=== PATIENT | male | born 1970 | race Caucasian/White ===

== ENCOUNTER 2017-04-13 12:22 | Inpatient (IN) | payer OTHER ==
[2017-04-13] MEDS ORDERED: ONDANSETRON 4 MG/2 ML VIAL IVP ONE (12:48)
--- NOTE | 2017-04-13 13:10 | EDPHY ---
H & P Stated Complaint: generalized abd pain, worse when eating starting yest Time Seen by Provider: 04/13/17 13:09 - Medical/Surgical History Hx Asthma: No Hx Chronic Respiratory Disease: No Hx Diabetes: No Hx Cardiac Disease: No Hx Renal Disease: No Hx Cirrhosis: No Hx Alcoholism: No Hx HIV/AIDS: No Hx Splenectomy or Spleen Trauma: No Other PMH: NONE - Social History Smoking Status: Never smoked Constitutional: Initial Vital Signs Temperature (C) 36.5 C 04/13/17 12:26 Heart Rate 87 04/13/17 12:26 Respiratory Rate 16 04/13/17 12:26 Blood Pressure 123/84 H 04/13/17 12:26 O2 Sat (%) 98 04/13/17 12:26 O2 Delivery Mode Room Air Allergies/Adverse Reactions: No Known Allergies Allergy (Unverified 04/06/15 21:15) Home Medications: Medication Instructions Recorded Allergy Relief 04/06/15 Medical Decision Making - Diagnostics Imaging Results: Imaging Impressions Abdomen CT 04/13/17 13:38 Impression: 1. Peripancreatic stranding of the mesenteric fat which may represent pancreatitis of indeterminate age. 2. No CT evidence of appendicitis, abscess, or bowel obstruction. 3. Cyst near the apex of the prostate. Consider PSA correlation. Findings and recommendations discussed with Emergency Department physician, Tim Butterfield MD, at 1437 hours, 04/13/2017. Final report concurs with initial preliminary interpretation. Abdomen Ultrasound 04/13/17 14:39 Impression: 1. No definite cholelithiasis. Gallbladder sludge as well as a gallbladder polyp are identified. 2. Suspect hepatic steatosis. Results called and discussed with Tim Butterfield MD on 04/13/2017 at 16:08 Imaging: Discussed imaging studies w/ call out clerk Radiologist, I viewed and interpreted images myself ED Course/Re-evaluation: CHIEF COMPLAINT: Abdominal pain HISTORY OF PRESENT ILLNESS: The patient is a 46 y/o male complaining of diffuse abdominal pain onset yesterday while eating. He first noticed pain on the right side of his abdomen, it then moved to the left side and is now diffuse. The pain intermittently radiates abruptly up his esophagus under his sternum and feels "like reflux." His abdominal pain continues to be worse on the right side and now radiates to his flank. He denies associated shortness of breath. No abdominal surgery history. History obtained via head of music. REVIEW OF SYSTEMS: A 10 point review of systems was performed and is negative with the exception of the elements mentioned in the history of present illness. PHYSICAL EXAM: HR, BP, O2 Sat, RR. Temp noted General Appearance: Alert, obese, well-hydrated, appropriate, and uncomfortable -appearing. Head: Atraumatic without scalp tenderness or obvious injury Eyes: Pupils equal, round, reactive to light and accommodation, EOMI, no trauma , no injection. Nose: Atraumatic, no rhinorrhea, clear. Throat: Mucus membranes moist. Neck: Supple, nontender, no lymphadenopathy. Respiratory: No retractions, no distress, no wheezes, and no accessory muscle use. Lungs are clear to auscultation bilaterally. Cardiovascular: Regular rate and rhythm, no murmurs, rubs, or gallops. Good capillary refill all extremities. Gastrointestinal: Abdomen is soft, diffuse moderate tenderness, non-distended, no masses, no rebound, no guarding, no peritoneal signs. Musculoskeletal: Normal active ROM of all extremities, atraumatic. Neurological: Alert, appropriate, and interactive. Nonfocal neuro exam. Skin: No rashes, good turgor, no nodules on palpation. Past medical history: Denies Past surgical history: Denies Family history: Noncontributory Social history: Salvadorean-speaking, alcohol use DIAGNOSTICS/PROCEDURES/CRITICAL CARE TIME: Abdominal CT: unremarkable. Abdominal US: unremarkable. DIFFERENTIAL DIAGNOSIS: The differential diagnosis for the patient's abdominal pain included but was not limited to alcoholic gastritis, appendicitis , cholecystitis, hernias, testicular torsion, and urinary tract infection. MEDICAL DECISION MAKING: This is an obese, Salvadorean-speaking 46 y/o male with no stated medical history who presents with 1 day of diffuse abdominal pain that radiates into his chest and feels like reflux. He has a soft abdomen with diffuse moderate tenderness on exam. Plan for labs, imaging, and symptom management. IV established. Labs drawn including CBC, CHEM. Plan for abdominal CT. Symptom management with 4mg IV Zofran, 1mg IV Dilaudid, 1L IV NS. 1610: Imaging and labs unremarkable. Reassessed patient. He continues to have diffuse abdominal tenderness. I believe this is likely alcoholic gastritis, but will request surgical consult as well. 1640: Consulted with Dr. Barney, surgeon. He will evaluate patient here. Dr. Barney does not see any surgical process and recommends admission to the hospitalist for ongoing pain. 40mg IV Protonix administered. Dr. Frias accepts admission. - Data Points Laboratory Results: Laboratory Results 04/13/17 12:35 04/13/17 12:35 04/13/17 04/13/17 12:35 12:35 WBC 10.51 10^3/uL H 10^3/uL (3.80-9.50) RBC 5.59 10^6/uL 10^6/uL (4.40-6.38) Hgb 17.0 g/dL g/dL (13.7-17.5) Hct 49.7 % % (40.0-51.0) MCV 88.9 fL fL (81.5-99.8) MCH 30.4 pg pg (27.9-34.1) MCHC 34.2 g/dL g/dL (32.4-36.7) RDW 12.9 % % (11.5-15.2) Plt Count 245 10^3/uL 10^3/uL (150-400) MPV 9.9 fL fL (8.7-11.7) Neut % (Auto) 78.2 % H % (39.3-74.2) Lymph % (Auto) 12.4 % L % (15.0-45.0) [place] % (Auto) 6.1 % % (4.5-13.0) Eos % (Auto) 2.1 % % (0.6-7.6) Baso % (Auto) 0.7 % % (0.3-1.7) Nucleat RBC Rel Count 0.0 % % (0.0-0.2) Absolute Neuts (auto) 8.23 10^3/uL H 10^3/uL (1.70-6.50) Absolute Lymphs (auto) 1.30 10^3/uL 10^3/uL (1.00-3.00) Absolute Monos (auto) 0.64 10^3/uL 10^3/uL (0.30-0.80) Absolute Eos (auto) 0.22 10^3/uL 10^3/uL (0.03-0.40) Absolute Basos (auto) 0.07 10^3/uL 10^3/uL (0.02-0.10) Absolute Nucleated RBC 0.00 10^3/uL 10^3/uL (0-0.01) Immature Gran % 0.5 % % (0.0-1.1) Immature Gran # 0.05 10^3/uL 10^3/uL (0.00-0.10) Sodium 138 mEq/L mEq/L (134-144) Potassium 4.1 mEq/L mEq/L (3.5-5.2) Chloride 106 mEq/L mEq/L (97-110) Carbon Dioxide 18 mEq/l L mEq/l (22-31) Anion Gap 14 mEq/L mEq/L (8-16) BUN 12 mg/dL mg/dL (7-23) Creatinine 0.9 mg/dL mg/dL (0.7-1.3) Estimated GFR > 60 Glucose 112 mg/dL H mg/dL (70-100) Calcium 9.9 mg/dL mg/dL (8.5-10.4) Total Bilirubin 1.6 mg/dL H mg/dL (0.1-1.4) Conjugated Bilirubin 0.5 mg/dL mg/dL (0.0-0.5) Unconjugated Bilirubin 1.1 mg/dL mg/dL (0.0-1.1) AST 44 IU/L IU/L (17-59) ALT 113 IU/L H IU/L (21-72) Alkaline Phosphatase 71 IU/L IU/L (38-126) Total Protein 7.6 g/dL g/dL (6.3-8.2) Albumin 4.7 g/dL g/dL (3.5-5.0) Lipase 108.0 IU/L IU/L (23-300) Medications Given: Discontinued Medications Hydromorphone HCl (Dilaudid) 1 mg IVP EDNOW ONE Stop: 04/13/17 13:38 Last Admin: 04/13/17 13:41 Dose: 1 mg Hydromorphone HCl (Dilaudid) 1 mg IVP EDNOW ONE Stop: 04/13/17 15:55 Last Admin: 04/13/17 16:14 Dose: 1 mg Sodium Chloride (Ns) 1,000 mls @ 0 mls/hr IV ONCE ONE; Wide Open PRN Reason: Protocol Stop: 04/13/17 13:38 Last Admin: 04/13/17 13:41 Dose: 1,000 mls Sodium Chloride (Ns) 1,000 mls @ 0 mls/hr IV ONCE ONE; Wide Open PRN Reason: Protocol Stop: 04/13/17 13:38 Last Admin: 04/13/17 13:42 Dose: 1,000 mls Ondansetron HCl (Zofran) 4 mg IVP EDNOW ONE Stop: 04/13/17 12:49 Last Admin: 04/13/17 12:52 Dose: 4 mg Departure - Departure Disposition: [facility] Inpatient Acute Clinical Impression: Gastritis Abdominal pain Qualifiers: Abdominal location: generalized Qualified Code(s): R10.84 - Generalized abdominal pain Condition: Fair Referrals: [facility] [Other] - As per Instructions Print Language: Salvadorean Report Scribed for: Tim Butterfield Report Scribed by: Mariia Ybarra Date of Report: 04/13/17 Time of Report: 13:18
[2017-04-13] MEDS ORDERED: NS 1,000 ML IV ONE ×2 (13:37)
[2017-04-13] MEDS ORDERED: HYDROmorphONE/DILAUDID 1 MG/ML SYR IVP ONE ×2 (13:37→15:54)
[2017-04-13 13:42] LABS: % IMMATURE GRANULYOCYTES 0.5 % (0.0-1.1); ABSOLUTE IMMATURE GRANULOCYTES 0.05 10^3/uL (0.00-0.10); ADD DIFF? NO; ADD MORPH? NO; ADD SCAN? NO; ATYPICAL LYMPHOCYTE FLAG 0 (0-99); FRAGMENT RBC FLAG 0 (0-99); HEMATOCRIT 49.7 % (40.0-51.0); LEFT SHIFT FLG 20 (0-99); LIPEMIA HEMOLYSIS FLAG 90 (0-99); MEAN CELL HEMOGLOBIN 30.4 pg (27.9-34.1); MEAN CELL HEMOGLOBIN CONCENTR. 34.2 g/dL (32.4-36.7); MEAN CELL VOLUME 88.9 fL (81.5-99.8); MEAN PLATELET VOLUME 9.9 fL (8.7-11.7); PLATELET CLUMPS FLAG 10 (0-99); PLATELET COUNT 245 10^3/uL (150-400); RED BLOOD CELL COUNT 5.59 10^6/uL (4.40-6.38); RED CELL DISTRIBUTION WIDTH 12.9 % (11.5-15.2)
[2017-04-13 13:48] LABS: ALANINE AMINOTRANSFERASE 113 IU/L (21-72); ALBUMIN 4.7 g/dL (3.5-5.0); ALKALINE PHOSPHATASE 71 IU/L (38-126); ANION GAP 14 mEq/L (8-16); ASPARTATE AMINOTRANSFERASE 44 IU/L (17-59); BILIRUBIN,TOTAL 1.6 mg/dL (0.1-1.4); BILIRUBIN-CONJUGATED 0.5 mg/dL (0.0-0.5); BILIRUBIN-UNCONJUGATED 1.1 mg/dL (0.0-1.1); CALCIUM 9.9 mg/dL (8.5-10.4); CARBON DIOXIDE 18 mEq/l (22-31); CHLORIDE 106 mEq/L (97-110); CREATININE 0.9 mg/dL (0.7-1.3); GLOMERULAR FILTRATION RATE > 60; GLUCOSE 112 mg/dL (70-100); POTASSIUM 4.1 mEq/L (3.5-5.2); SODIUM 138 mEq/L (134-144); TOTAL PROTEIN 7.6 g/dL (6.3-8.2)
[2017-04-13] MEDS ORDERED: IOPAMIDOL (ISOVUE-300) 100 ML BTL ONE (14:03)
[2017-04-13] MEDS ORDERED: PANTOPRAZOLE SODIUM 40 MG in NS 100 ML IV ONE (17:04)
--- NOTE | 2017-04-13 17:21 | PDCONSULT ---
[employer] Note: This is a 46-year-old gentleman presents for 24 hours of diffuse abdominal pain associated with nausea. Patient denies any other symptoms including fevers or chills, diarrhea, malaise, dysuria or other constitutional symptoms. The pain rates about a 5/10 with palpation and he has mild generalized peritoneal signs. He has had no previous surgery on his abdomen. He recently was diagnosed with prostatitis and placed on medication by [facility] in [place] however he does not recall the specific name of medication he has been taking. Past medical/past surgical/family and social history reviewed all noncontributory except what was mentioned above Review of systems significant for his abdominal pain all others reviewed and are negative No known drug allergies Generic Name Dose Route Start Last Admin Trade Name Freq PRN Reason Stop Dose Admin Pantoprazole Sodium 40 mg/ 100 mls @ 200 mls/hr 04/13/17 17:04 04/13/17 17:12 Sodium Chloride IV 04/13/17 17:33 100 mls EDNOW ONE Administration Discontinued Medications Generic Name Dose Route Start Last Admin Trade Name Freq PRN Reason Stop Dose Admin Hydromorphone HCl 1 mg 04/13/17 13:37 04/13/17 13:41 Dilaudid IVP 04/13/17 13:38 1 mg EDNOW ONE Administration Hydromorphone HCl 1 mg 04/13/17 15:54 04/13/17 16:14 Dilaudid IVP 04/13/17 15:55 1 mg EDNOW ONE Administration Sodium Chloride 1,000 mls @ 0 mls/hr 04/13/17 13:37 04/13/17 13:41 Ns IV 04/13/17 13:38 1,000 mls ONCE ONE Administration Protocol Wide Open Sodium Chloride 1,000 mls @ 0 mls/hr 04/13/17 13:37 04/13/17 13:42 Ns IV 04/13/17 13:38 1,000 mls ONCE ONE Administration Protocol Wide Open Iopamidol Confirm 04/13/17 14:03 Isovue-300 Administered 04/13/17 14:04 Dose 100 ml .ROUTE .STK-MED ONE Ondansetron HCl 4 mg 04/13/17 12:48 04/13/17 12:52 Zofran IVP 04/13/17 12:49 4 mg EDNOW ONE Administration Alert oriented no distress Sclerae are anicteric Oropharynx is moist Regular rate and rhythm Clear to auscultation bilaterally Soft diffusely tender, no hepatosplenomegaly, no hernias, nondistended Extremities without edema 2+ over 2+ peripheral pulses WBC 10.51 10^3/uL (3.80-9.50) H 04/13/17 12:35 RBC 5.59 10^6/uL (4.40-6.38) 04/13/17 12:35 Hgb 17.0 g/dL (13.7-17.5) 04/13/17 12:35 Hct 49.7 % (40.0-51.0) 04/13/17 12:35 MCV 88.9 fL (81.5-99.8) 04/13/17 12:35 MCH 30.4 pg (27.9-34.1) 04/13/17 12:35 MCHC 34.2 g/dL (32.4-36.7) 04/13/17 12:35 RDW 12.9 % (11.5-15.2) 04/13/17 12:35 Plt Count 245 10^3/uL (150-400) 04/13/17 12:35 MPV 9.9 fL (8.7-11.7) 04/13/17 12:35 Neut % (Auto) 78.2 % (39.3-74.2) H 04/13/17 12:35 Lymph % (Auto) 12.4 % (15.0-45.0) L 04/13/17 12:35 [place] % (Auto) 6.1 % (4.5-13.0) 04/13/17 12:35 Eos % (Auto) 2.1 % (0.6-7.6) 04/13/17 12:35 Baso % (Auto) 0.7 % (0.3-1.7) 04/13/17 12:35 Nucleat RBC Rel Count 0.0 % (0.0-0.2) 04/13/17 12:35 Absolute Neuts (auto) 8.23 10^3/uL (1.70-6.50) H 04/13/17 12:35 Absolute Lymphs (auto) 1.30 10^3/uL (1.00-3.00) 04/13/17 12:35 Absolute Monos (auto) 0.64 10^3/uL (0.30-0.80) 04/13/17 12:35 Absolute Eos (auto) 0.22 10^3/uL (0.03-0.40) 04/13/17 12:35 Absolute Basos (auto) 0.07 10^3/uL (0.02-0.10) 04/13/17 12:35 Absolute Nucleated RBC 0.00 10^3/uL (0-0.01) 04/13/17 12:35 Immature Gran % 0.5 % (0.0-1.1) 04/13/17 12:35 Immature Gran # 0.05 10^3/uL (0.00-0.10) 04/13/17 12:35 Sodium 138 mEq/L (134-144) 04/13/17 12:35 Potassium 4.1 mEq/L (3.5-5.2) 04/13/17 12:35 Chloride 106 mEq/L (97-110) 04/13/17 12:35 Carbon Dioxide 18 mEq/l (22-31) L 04/13/17 12:35 Anion Gap 14 mEq/L (8-16) 04/13/17 12:35 BUN 12 mg/dL (7-23) 04/13/17 12:35 Creatinine 0.9 mg/dL (0.7-1.3) 04/13/17 12:35 Estimated GFR > 60 04/13/17 12:35 Glucose 112 mg/dL (70-100) H 04/13/17 12:35 Calcium 9.9 mg/dL (8.5-10.4) 04/13/17 12:35 Total Bilirubin 1.6 mg/dL (0.1-1.4) H 04/13/17 12:35 Conjugated Bilirubin 0.5 mg/dL (0.0-0.5) 04/13/17 12:35 Unconjugated Bilirubin 1.1 mg/dL (0.0-1.1) 04/13/17 12:35 AST 44 IU/L (17-59) 04/13/17 12:35 ALT 113 IU/L (21-72) H 04/13/17 12:35 Alkaline Phosphatase 71 IU/L (38-126) 04/13/17 12:35 Total Protein 7.6 g/dL (6.3-8.2) 04/13/17 12:35 Albumin 4.7 g/dL (3.5-5.0) 04/13/17 12:35 Lipase 108.0 IU/L (23-300) 04/13/17 12:35 CT scan and ultrasound personally reviewed mild peripancreatic inflammation is noted on CT scan otherwise all is normal agree with findings below Imaging Impressions Abdomen CT 04/13/17 13:38 Impression: 1. Peripancreatic stranding of the mesenteric fat which may represent pancreatitis of indeterminate age. 2. No CT evidence of appendicitis, abscess, or bowel obstruction. 3. Cyst near the apex of the prostate. Consider PSA correlation. Findings and recommendations discussed with Emergency Department physician, Tim Butterfield MD, at 1437 hours, 04/13/2017. Final report concurs with initial preliminary interpretation. Abdomen Ultrasound 04/13/17 14:39 Impression: 1. No definite cholelithiasis. Gallbladder sludge as well as a gallbladder polyp are identified. 2. Suspect hepatic steatosis. Results called and discussed with Tmi Butterfield MD on 04/13/2017 at 16:08 Impression/Plan: Enteritis versus gastritis. No surgical intervention is required at this time Will re-evaluate the patient if he is admitted to the hospital otherwise he can follow up in the clinic if his symptoms progress Interviewed exam done in the presence of an aerial photograph interpreter.
[2017-04-13] MEDS ORDERED: TEMAZEPAM 15 MG CAP PO PRN (17:32)
[2017-04-13] MEDS ORDERED: MAG HYDROX/AL HYDROX/SIMETH 30 ML UDCUP PO ONE (17:33)
[2017-04-13] MEDS ORDERED: LIDOCAINE 2% VISCOUS 15 ML UDCUP PO ONE (17:33)
[2017-04-13] MEDS ORDERED: HYOSCYAMINE SULFATE 0.125 MG TAB PO ONE (17:33)
--- NOTE | 2017-04-13 19:08 | GHP ---
[f rep st] HISTORY AND PHYSICAL DATE OF ADMISSION: 04/13/2017 CHIEF COMPLAINT: Abdominal pain. HISTORY OF PRESENT ILLNESS: This is a 46-year-old, Khmer-speaking man, seen with the agricultural extension educator, who presents with abdominal pain. This started yesterday. Described as initially starting on the right-hand side, now diffuse, associated with some nausea. No vomiting. No diarrhea. He had a nor mal bowel movement this morning. Worse with eating, any movement. He felt better with IV narcotics received in the ED. Notably, he has been recently treated for prostatitis. He is on about 2 weeks of antibiotics currently. He does not remember the antibiotic which he is taking, though it is a t wice a day antibiotic, was changed to this a few days ago because the initial antibiotic was not wor walter. This has been done by his primary care doctor. He had been treated for prostatitis before, h as seen a urologist who did what sounds like a cystoscopy which was reported as normal. He has had abdominal pain like this 2 or 3 times in the past, no clear diagnosis, but given the presumptive jayleen gnosis of gastritis. He has never seen a GI doctor or had an EGD. PAST MEDICAL/SURGICAL HISTORY: 1. History of gastritis. 2. History of prostatitis. MEDICATIONS: Please see medication reconciliation. ALLERGIES: No known drug allergies. FAMILY HISTORY: Reviewed and noncontributory. SOCIAL HISTORY: He occasionally drinks alcohol, though he says he does not make a habit of this. H e does not smoke. REVIEW OF SYSTEMS: A 10-point review of systems is conducted and is negative except per HPI. PHYSICAL EXAM: VITAL SIGNS: Blood pressure 128/76, respiration rate 16, saturating 98% on room air , temperature is 36.5. GENERAL: The patient is a very pleasant, man. He is lying in bed. He appears somewhat uncomfortable, occasionally holding his abdomen. HEENT: Normocephalic, atrau matic. CARDIOVASCULAR: Regular rate and rhythm. No murmurs, rubs, or gallops. PULMONARY: Lungs clear to auscultation bilaterally. ABDOMEN: Soft. He is diffusely tender to palpation mostly in t he right upper quadrant. There is no guarding or rebound. He has normal bowel sounds. SKIN: No r syed. : No Woo. NEUROLOGIC: Alert and oriented x3. He is moving all extremities. PSYCHIATRI C: Normal mood and affect. LABS: White count is 10.5 with 78% neutrophils, bicarb is 18, total bilirubin is 1.6, ALT is 113. DATA: 1. I discussed this with Dr. Barney, as well as Dr. Butterfield, does not appear to be surgical, will admit to med/surg for pain control. 2. Abdominal ultrasound shows gallbladder sludge, and suspected hepatic steatosis. 3. Abdominal CT scan shows question of pancreatitis. No appendicitis, abscess, or bowel perforatio n. It does show a cyst near the apex of the prostate. IMPRESSION AND PLAN: A 46-year-old man admitted with abdominal pain. 1. Abdominal pain: Does not appear to be surgical. Differential includes gastritis, very odd pres entation of prostatitis, other functional abdominal pain. There was pancreatic stranding seen on CT scan, though no evidence of chronic pancreatitis and normal lipase. We will give him a GI cocktail to see if this helps his pain. Given him IV Protonix. Otherwise, we will provide supportive care including IV fluids, and IV and oral pain medicines. If this does not improve, would consider invol ving GI. 2. Hepatic steatosis with elevated ALT: I do not think that this is related to his abdominal pain. 3. Prostatitis, cyst at the apex of prostate: He is currently on antibiotics. We will continue cristian for now. It is possible this is related to his abdominal pain, though I am not certain exactly how at this point. 4. Pancreatitis seen on CT scan: Also unclear etiology with a normal lipase. 5. Non-anion gap metabolic acidosis: Possibly due to hypoperfusion, poor intake. We will recheck in the morning. 6. Leukocytosis: We will hold on antibiotics now. We will recheck this in the morning as well. /[id number]/MODL
[2017-04-13] MEDS: HYDROmorphONE/DILAUDID 1 MG/ML SYR IVP PRN ×2 (20:43→23:04)
[2017-04-13] MEDS: PANTOPRAZOLE SODIUM 40 MG in NS 100 ML IV SCH (22:09)
[2017-04-13] MEDS: ONDANSETRON DISINTEGRATING 4 MG TAB PO PRN (23:05)
[2017-04-14] MEDS: HYDROmorphONE/DILAUDID 1 MG/ML SYR IVP PRN ×5 (02:59→12:35)
[2017-04-14 06:27] LABS: % IMMATURE GRANULYOCYTES 0.6 % (0.0-1.1); ABSOLUTE IMMATURE GRANULOCYTES 0.07 10^3/uL (0.00-0.10); ADD DIFF? NO; ADD MORPH? NO; ADD SCAN? NO; ATYPICAL LYMPHOCYTE FLAG 10 (0-99); FRAGMENT RBC FLAG 0 (0-99); HEMATOCRIT 45.5 % (40.0-51.0); HEMOGLOBIN 15.2 g/dL (13.7-17.5); LEFT SHIFT FLG 10 (0-99); LIPEMIA HEMOLYSIS FLAG 80 (0-99); MEAN CELL HEMOGLOBIN CONCENTR. 33.4 g/dL (32.4-36.7); MEAN CELL VOLUME 89.9 fL (81.5-99.8); MEAN PLATELET VOLUME 9.8 fL (8.7-11.7); PLATELET CLUMPS FLAG 0 (0-99); PLATELET COUNT 198 10^3/uL (150-400); RED BLOOD CELL COUNT 5.06 10^6/uL (4.40-6.38); RED CELL DISTRIBUTION WIDTH 13.1 % (11.5-15.2)
[2017-04-14 06:45] LABS: ALANINE AMINOTRANSFERASE 81 IU/L (21-72); ALBUMIN 3.8 g/dL (3.5-5.0); ALKALINE PHOSPHATASE 61 IU/L (38-126); ANION GAP 10 mEq/L (8-16); ASPARTATE AMINOTRANSFERASE 27 IU/L (17-59); BILIRUBIN,TOTAL 1.8 mg/dL (0.1-1.4); CALCIUM 8.9 mg/dL (8.5-10.4); CARBON DIOXIDE 23 mEq/l (22-31); CHLORIDE 104 mEq/L (97-110); CREATININE 0.8 mg/dL (0.7-1.3); GLOMERULAR FILTRATION RATE > 60; GLUCOSE 112 mg/dL (70-100); POTASSIUM 3.9 mEq/L (3.5-5.2); SODIUM 137 mEq/L (134-144); TOTAL PROTEIN 6.3 g/dL (6.3-8.2)
[2017-04-14] MEDS: ONDANSETRON 4 MG/2 ML VIAL IVP PRN ×2 (07:44→12:22)
[2017-04-14] MEDS: PANTOPRAZOLE SODIUM 40 MG in NS 100 ML IV SCH ×2 (10:28→20:38)
[2017-04-14] MEDS: NS 1,000 ML IV SCH (12:39)
--- NOTE | 2017-04-14 14:55 | HOSPPROG ---
Hospitalist Progress Note Assessment/Plan: * Severe recurrent RUQ pain radiating to back -some pancreatic inflammation by CT (but lipase normal) -mild LFT elevation, but indirect bili -check MRCP -if pain continues, consider GI consult for EGD -empiric PPI -if w/u negative - may be functional GI pain * GB sludge - consider HIDA if pain continues * Obesity BMI 36 Subjective: Seen with casino gaming worker. Severe RUQ pain continues - goes away with IV pain medicine but immediately comes back when med wears off. Has had this a couple of times before. Radiates to back on right Objective: Vital Signs Temp Pulse Resp BP Pulse Ox 37.0 C 66 96 H 103/57 L 99 04/14/17 11:16 04/14/17 11:16 04/14/17 11:16 04/14/17 11:16 04/14/17 04:00 Laboratory Results 04/14/17 05:53 04/14/17 05:53 04/13/17 04/14/17 04/15/17 05:59 05:59 05:59 Intake Total 2200 487 Output Total 200 120 Balance 2000 367 IV dilaudid for pain - Physical Exam Constitutional: no apparent distress, appears nourished, not in pain Cardiovascular: regular rate and rhythym, no murmur, rub, or gallop Respiratory: no respiratory distress, no rales or rhonchi, clear to auscultation Gastrointestinal: tenderness (RUQ), No ascites, No hepatosplenomegally, No guarding, No rebound, No distension Skin: no rashes or abrasions, no fluctuance, no induration Neurologic: AAOx3, sensation intact bilaterally Psychiatric: interacting appropriately, not anxious, not encephalopathic, thought process linear ICD10 Worksheet Patient Problems: Problems Problem Status Onset Abdominal pain Acute Gastritis Acute
[2017-04-14 16:27] LABS: COLOR YELLOW; LEUKOCYTE ESTERASE,URINE NEGATIVE (NEGATIVE); NITRITE,URINE NEGATIVE (NEGATIVE)
[2017-04-14 16:42] LABS: MUCUS 2+ /lpf (NONE-1+)
--- NOTE | 2017-04-14 17:11 | SOAPPROG ---
SOAP Progress Note Assessment/Plan: Assessment: Off floor for MRI Med note suggests localizing of pain to RUQ Plan: check MRI/reassess in AM 04/14/17 17:10 Objective: Vital Signs Temp Pulse Resp BP Pulse Ox 37.2 C 57 L 16 96/62 L 99 04/14/17 16:00 04/14/17 16:00 04/14/17 16:00 04/14/17 16:00 04/14/17 16:00 ICD10 Worksheet Patient Problems: Problems Problem Status Onset Abdominal pain Acute Gastritis Acute
[2017-04-14] MEDS: oxyCODONE IR 5 MG TAB PO PRN ×2 (17:37→22:18)
[2017-04-14] MEDS: ONDANSETRON DISINTEGRATING 4 MG TAB PO PRN (22:18)
[2017-04-15 05:19] LABS: % IMMATURE GRANULYOCYTES 0.4 % (0.0-1.1); ABSOLUTE IMMATURE GRANULOCYTES 0.04 10^3/uL (0.00-0.10); ADD DIFF? NO; ADD MORPH? NO; ADD SCAN? NO; ATYPICAL LYMPHOCYTE FLAG 10 (0-99); FRAGMENT RBC FLAG 0 (0-99); HEMATOCRIT 42.9 % (40.0-51.0); HEMOGLOBIN 14.2 g/dL (13.7-17.5); LEFT SHIFT FLG 20 (0-99); LIPEMIA HEMOLYSIS FLAG 80 (0-99); MEAN CELL HEMOGLOBIN 30.3 pg (27.9-34.1); MEAN CELL HEMOGLOBIN CONCENTR. 33.1 g/dL (32.4-36.7); MEAN CELL VOLUME 91.5 fL (81.5-99.8); MEAN PLATELET VOLUME 9.8 fL (8.7-11.7); PLATELET CLUMPS FLAG 10 (0-99); PLATELET COUNT 180 10^3/uL (150-400); RED BLOOD CELL COUNT 4.69 10^6/uL (4.40-6.38)
[2017-04-15 05:33] LABS: ALANINE AMINOTRANSFERASE 69 IU/L (21-72); ALBUMIN 3.3 g/dL (3.5-5.0); ALKALINE PHOSPHATASE 56 IU/L (38-126); ANION GAP 8 mEq/L (8-16); ASPARTATE AMINOTRANSFERASE 20 IU/L (17-59); BILIRUBIN,TOTAL 1.6 mg/dL (0.1-1.4); BILIRUBIN-CONJUGATED 0.3 mg/dL (0.0-0.5); BILIRUBIN-UNCONJUGATED 1.3 mg/dL (0.0-1.1); CALCIUM 8.5 mg/dL (8.5-10.4); CARBON DIOXIDE 26 mEq/l (22-31); CHLORIDE 104 mEq/L (97-110); CREATININE 0.9 mg/dL (0.7-1.3); GLOMERULAR FILTRATION RATE > 60; GLUCOSE 96 mg/dL (70-100); POTASSIUM 3.7 mEq/L (3.5-5.2); SODIUM 138 mEq/L (134-144); TOTAL PROTEIN 5.7 g/dL (6.3-8.2)
[2017-04-15] MEDS: ONDANSETRON DISINTEGRATING 4 MG TAB PO PRN ×2 (05:34→21:31)
[2017-04-15] MEDS: oxyCODONE IR 5 MG TAB PO PRN ×4 (05:35→21:31)
[2017-04-15] MEDS ORDERED: NS 1,000 ML IV ONE (06:47)
[2017-04-15] MEDS: PANTOPRAZOLE SODIUM 40 MG in NS 100 ML IV SCH (09:29)
[2017-04-15] MEDS: NS 1,000 ML IV SCH (09:29)
[2017-04-15] MEDS: ACETAMINOPHEN 325 MG TAB PO PRN (11:56)
[2017-04-15] MEDS ORDERED: MIDAZOLAM 2 MG/2 ML VIAL ONE (12:32)
[2017-04-15] MEDS ORDERED: fentaNYL 100 MCG/2 ML INJ ONE (12:32)
--- NOTE | 2017-04-15 12:48 | SUROPNOTE ---
[facility] Operative Report - Surgery EGD Indication: abd pain Medications: 3mg versed, 75mcg fentanyl Complications: none acutely Procedure time: 11 minutes Findings: 1. normal esopahgus 2. mild gastritis - bx'd 3. normal duodenum Impression/Recs: 1. Abd pain - EGD without clear explanation - given per pancreatic stranding, abn ALT on admission (only mild elevation), and elevated lipase could could consider biliary pancreatitis? - patient has had prior, intermittent, pain symptoms - unrelated? prior eiposed of symptomatic biliary tract disease - patient has had prior mild LFT abnormalities - biliary disease? or benign fatty liver effects? - ok to advance diet - change IV PPI TO PO PPI - consider surgical consult?
--- NOTE | 2017-04-15 13:20 | GCON ---
[f rep st] CONSULTATION REFERRING PHYSICIAN: Sunshine Chapman MD REASON FOR CONSULTATION: Abdominal pain. HISTORY OF PRESENT ILLNESS: Briefly, I was asked by Dr. Chapman to consult on the patient for the evaluation of abdominal pain. He was admitted to the hospital on 04/13/2017 for the evaluation of abdominal symptoms. He reports he was in his usual state of health until the day prior to admission. He began having right-sided abdominal pain. It became worse and was associated with nausea. He denied vomiting initially. He reports no diarrhea. He was having difficulty with any eating and any physical activity. He was recently on antibiotics for prostatitis, and that antibiotic choice was changed, but that he does not suspect that these medications or prostatitis had led to his symptoms. Given that he was feeling worse, he presented to the emergency room for evaluation. His hospital course has been uncomplicated. He has continued to have abdominal pain however. He has undergone ultrasound, CAT scan, as well as MRCP. No clear etiology for his pain symptoms has been discovered. He did have some mild nonspecific peripancreatic and perinephric stranding. He denies vomiting. He has had similar symptoms in the past, but no clear workup of his symptoms. He does not take nonsteroidal therapies. He does not drink alcohol. ALLERGIES: None. MEDICATIONS: Outpatient medicines were the occasional Tylenol. Current medicines are Dilaudid, Zofran, oxycodone, Protonix and temazepam. FAMILY HISTORY: Negative for ulcer. SOCIAL HISTORY: He does not drink, smoke or use drugs. PAST MEDICAL HISTORY: Includes prostatitis. REVIEW OF SYSTEMS: A complete 14-point review of systems was undertaken with the patient and the pertinent positives and negatives are documented in the history of present illness. PHYSICAL EXAMINATION: GENERAL: BMI>30, This is a well-developed male, in no apparent distress. HEENT: His pupils are equal, round, reactive to light and accommodation. His sclerae are nonicteric. His oropharynx is clear. NECK: Supple without lymphadenopathy. HEART: Regular without murmur. ABDOMEN: Soft. He has minimal epigastric tenderness to deep palpation. EXTREMITIES: Free of cyanosis, clubbing, and edema. NEUROLOGIC: Grossly nonfocal. SKIN: Warm and dry without lesions. EXTREMITIES: No arthritis. PSYCH: Stable mood and affect. LABORATORY DATA: White count of 9.41, hemoglobin of 14.2, hematocrit of 42.9, platelet count of 180. Sodium of 138, potassium of 3.7, chloride of 104, bicarb of 26, BUN of 8, creatinine of 0.9. Total bilirubin of 1.6. ALT was initially 113, has fallen to 69. Conjugated bilirubin of 0.3. Alkaline phosphatase of 56, albumin of 3.3, lipase of 577. Abdominal MRI revealed normal common bile duct caliber with normal intrahepatic and extrahepatic bile ducts without obvious filling defect. Abdominal ultrasound revealed no definite cholelithiasis, gallbladder sludge, as well as gallbladder polyps were identified. Hepatic steatosis was suspected. Abdominal CT scan shows peripancreatic stranding and mesenteric fat which may represent pancreatitis of an indeterminate age. There is a cyst near the apex of the prostate. IMPRESSION AND RECOMMENDATIONS: The patient has had recurring abdominal pain. It is improving somewhat during his current hospital stay. Imaging has been somewhat nondiagnostic, but suggestive of mild pancreatitis. Given the somewhat equivocal radiographic findings in the setting of ongoing abdominal symptoms, gastroenterology consultative services were requested for additional workup. The differential diagnosis includes biliary pancreatitis. Given his abnormal ALT, sludge on gallbladder exam, and peripancreatic stranding, this is possible. The differential might also include peptic ulcer disease, Helicobacter pylori infection, etc. At this time, I recommend the patient remain on a proton pump inhibitor, and we will plan upper endoscopy to evaluate for peptic disease. If upper endoscopy is negative , we may resolve to a mild case of biliary pancreatitis. In that circumstance, surgical consultation should be considered. If this is a presentation of biliary pancreatitis, then recurrence is likely over the next several months to years. Given his obesity, he is at increased risk of conscious sedation, but those risks do not outweigh the potential benefits /[id number]/MODL MTDD
--- NOTE | 2017-04-15 16:35 | HOSPPROG ---
Hospitalist Progress Note Assessment/Plan: * Severe recurrent RUQ pain radiating to back - suspect GB disease -some pancreatic inflammation by CT - lipase now elevated -EGD negative for PUD -GB sludge on US -agree with GI that all very suspicious for GB disease -d/w Dr. Barney - consider lap raúl * Suspected biliary pancreatitis - NPO -advance diet if no lap raúl planned * Obesity BMI 36 Subjective: Still RUQ pain Objective: Vital Signs Temp Pulse Resp BP Pulse Ox 37 C 58 L 12 108/65 97 04/15/17 15:47 04/15/17 15:47 04/15/17 15:47 04/15/17 15:47 04/15/17 15:47 Laboratory Results 04/15/17 04:55 04/15/17 04:55 04/14/17 04/15/17 04/16/17 05:59 05:59 05:59 Intake Total 450 Balance 450 case d/w Dr. Romeo - suspect GB disease with passed sludge MRCP - pancreatic inflammation - Physical Exam Constitutional: no apparent distress, appears nourished, not in pain Cardiovascular: regular rate and rhythym, no murmur, rub, or gallop Respiratory: no respiratory distress, no rales or rhonchi, clear to auscultation Gastrointestinal: normoactive bowel sounds, soft, non-tender abdomen, no palpable masses Skin: no rashes or abrasions, no fluctuance, no induration Neurologic: AAOx3, sensation intact bilaterally Psychiatric: interacting appropriately, not anxious, not encephalopathic, thought process linear ICD10 Worksheet Patient Problems: Problems Problem Status Onset Abdominal pain Acute Gastritis Acute
[2017-04-15] MEDS: FAMOTIDINE 20 MG/NACL 50 ML IV SCH (20:34)
--- NOTE | 2017-04-15 21:37 | SOAPPROG ---
[facility] Progress Note Assessment/Plan: Assessment/Plan: Pancreatitis on MRI with Lipase 577 EGD negative for gastritis/PUD Possible gallstone pancreatitis versus medication induced Will discuss lap raúl with pt possibly for 04/16 NPO post midnight 04/15/17 21:27 Objective: Vital Signs Temp Pulse Resp BP Pulse Ox 37.1 C 64 20 107/67 96 04/15/17 20:00 04/15/17 20:00 04/15/17 20:00 04/15/17 20:00 04/15/17 20:00 Laboratory Results 04/15/17 04:55 04/15/17 04:55 04/14/17 04/15/17 04/16/17 05:59 05:59 05:59 Intake Total 450 1509 Balance 450 1509 ICD10 Worksheet Patient Problems: Problems Problem Status Onset Abdominal pain Acute Gastritis Acute
[2017-04-16] MEDS: NS 1,000 ML IV SCH (01:14)
[2017-04-16] MEDS: oxyCODONE IR 5 MG TAB PO PRN ×3 (03:47→21:01)
[2017-04-16 05:30] LABS: BILIRUBIN,TOTAL 1.6 mg/dL (0.1-1.4); BILIRUBIN-CONJUGATED 0.3 mg/dL (0.0-0.5); BILIRUBIN-UNCONJUGATED 1.3 mg/dL (0.0-1.1); TOTAL PROTEIN 5.5 g/dL (6.3-8.2)
--- NOTE | 2017-04-16 08:55 | HOSPPROG ---
Hospitalist Progress Note Assessment/Plan: # abd pain: +pancreatitis, mild indirect bili; EGD neg for PUD d/t biliary pancreatitis? - plan cholecystectomy today by Dr Barney # obesity - BMI 36 Subjective: abd pain better after oxy IR; seen with electrician deck; +constipation Objective: Vital Signs Temp Pulse Resp BP Pulse Ox 36.9 C 60 16 97/56 L 97 04/16/17 07:18 04/16/17 07:18 04/16/17 07:18 04/16/17 07:18 04/16/17 07:18 Laboratory Results 04/15/17 04:55 04/15/17 04:55 04/15/17 04/16/17 04/17/17 05:59 05:59 05:59 Intake Total 450 2461 Balance 450 2461 chart reviewed MRI reviewed - Physical Exam Constitutional: no apparent distress, appears nourished, not in pain Cardiovascular: regular rate and rhythym, no murmur, rub, or gallop Respiratory: no respiratory distress, no rales or rhonchi, clear to auscultation Gastrointestinal: normoactive bowel sounds, tenderness (mild diffuse), No arevalo 's sign, No hepatosplenomegally, No guarding, No rebound, No distension ICD10 Worksheet Patient Problems: Problems Problem Status Onset Abdominal pain Acute Gastritis Acute
[2017-04-16] MEDS ORDERED: MAGNESIUM HYDROXIDE 30 ML UDCUP PO PRN (09:03)
[2017-04-16] MEDS ORDERED: POLYETHYLENE GLYCOL 3350 17 GM PKT PO PRN (09:03)
[2017-04-16] MEDS ORDERED: BISACODYL 10 MG SUPP PR PRN (09:03)
[2017-04-16] MEDS ORDERED: LACTULOSE 20 GM/30 ML UDCUP PO PRN (09:03)
[2017-04-16] MEDS: ONDANSETRON 4 MG/2 ML VIAL IVP PRN (09:12)
[2017-04-16] MEDS: FAMOTIDINE 20 MG/NACL 50 ML IV SCH ×2 (09:12→21:02)
[2017-04-16] MEDS ORDERED: fentaNYL 100 MCG/2 ML INJ ONE ×2 (11:58→12:25)
[2017-04-16] MEDS ORDERED: MIDAZOLAM 2 MG/2 ML VIAL ONE (11:59)
[2017-04-16] MEDS ORDERED: PROPOFOL/EMULSION 500 MG/50 ML BOTTLE IV ONE (11:59)
--- NOTE | 2017-04-16 12:24 | PDANEPAE ---
ANE Past Medical History - Pulmonary History Hx Asthma/Reactive Airway Disease: Yes Hx Oxygen in Use at Home: No Hx Sleep Apnea: Yes Sleep Apnea Screening Result - Last Documented: Positive - Endocrine History Hx Diabetes: No Obesity: yes, mild - GI History GERD: mild Hx Gastrointestinal Disorders: Yes - Chronic Pain History Chronic Pain: No ANE Patient History - Allergies Allergies/Adverse Reactions: No Known Allergies Allergy (Unverified 04/06/15 21:15) - Home Medications Home Medications: NK [No Known Home Meds] 04/13/17 [Last Taken Unknown] - NPO status NPO Since - Liquids (Date): 04/16/17 NPO Since - Liquids (Time): 00:00 NPO Since - Solids (Date): 04/16/17 NPO Since - Solids (Time): 00:00 - Smoking Hx Smoking Status: Never smoked ANE Labs/Vital Signs - Labs Result Diagrams: 04/15/17 04:55 04/15/17 04:55 - Vital Signs Blood Pressure: 126/78 Heart Rate: 69 Respiratory Rate: 18 O2 Sat (%): 90 Height: 172.72 cm Weight: 108.862 kg ANE Physical Exam - Airway Neck exam: short neck Mallampati Score: Class 3 Mouth exam: normal dental/mouth exam, bur[place] - Pulmonary Pulmonary: no respiratory distress, no rales or rhonchi, clear to auscultation - Cardiovascular Cardiovascular: regular rate and rhythym, no murmur, rub, or gallop, systolic murmur - ASA Status ASA Status: III, E ANE Anesthesia Plan Anesthesia Plan: general endotracheal anesthesia
[2017-04-16] MEDS ORDERED: ROCURONIUM 50 MG/5 ML VIAL ONE (12:26)
[2017-04-16] MEDS ORDERED: ONDANSETRON 4 MG/2 ML VIAL ONE (12:26)
[2017-04-16] MEDS ORDERED: SUGAMMADEX SODIUM 200 MG/2 ML VIAL IVP ONE (12:26)
[2017-04-16] MEDS ORDERED: KETOROLAC 30 MG/1 ML SDV ONE (12:26)
[2017-04-16] MEDS ORDERED: METOCLOPRAMIDE 10 MG/2 ML VIAL ONE (12:26)
[2017-04-16] MEDS ORDERED: RANITIDINE 50 MG/2 ML VIAL ONE (12:26)
[2017-04-16] MEDS ORDERED: LIDOCAINE 2% 5 ML SDV ONE (12:26)
[2017-04-16] MEDS ORDERED: MEPERIDINE 25 MG/ML SYR IVP PRN (12:30)
[2017-04-16] MEDS ORDERED: fentaNYL 100 MCG/2 ML INJ IVP PRN ×2 (12:30)
[2017-04-16] MEDS ORDERED: PROMETHAZINE HCL 25 MG/ML INJ IVP PRN (12:30)
[2017-04-16] MEDS ORDERED: DEXAMETHASONE 4 MG/ML VIAL IVP PRN (12:30)
[2017-04-16] MEDS ORDERED: NALOXONE HCL 0.4 MG/ML INJ IVP PRN (12:30)
[2017-04-16] MEDS ORDERED: METOCLOPRAMIDE 10 MG/2 ML VIAL IVP PRN (12:30)
[2017-04-16] MEDS ORDERED: LR 500 ML IV PRN (12:30)
--- NOTE | 2017-04-16 13:13 | POSTOPPROG ---
Post Op Note Date of Operation: 04/16/17 Surgeon: Kwadwo Barney Anesthesiologist: Maya Anesthesia: GET(General Endotracheal) Pre-op Diagnosis: Biliary pancreatitis Post-op Diagnosis: same Procedure: LAparoscopic cholecystectomy Findings: Minimal inflammation Inf/Abcess present in the surg proc area at time of surgery?: No EBL: Minimal Complications: none Specimen(s): gallbladder to pathology
--- NOTE | 2017-04-16 13:25 | POSTANESTH ---
Post Anesthetic Evaluation Cardiovascular Status: Normal, Stable Respiratory Status: Similar to Pre-op Cond., Requires Airway Assist Level of Consciousness/Mental Status: Mildly Sleepy, Arousable Pain Control: Adequate, Prn Tx Ordered Nausea/Vomiting Control: Adequate, Prn Tx Ordered Complications Possibly Related to Anesthesia: None Noted
--- NOTE | 2017-04-16 14:32 | GOP ---
[f rep st] OPERATIVE REPORT DATE OF OPERATION: SURGEON: Kwadwo Barney MD ANESTHESIA: General endotracheal anesthesia was used. ANESTHESIOLOGIST: Dr. Johanny Trejo PREOPERATIVE DIAGNOSIS: Biliary pancreatitis. POSTOPERATIVE DIAGNOSIS: Biliary pancreatitis. PROCEDURE PERFORMED: Laparoscopic cholecystectomy. FINDINGS: SPECIMENS: Gallbladder to Permanent Pathology. INDICATIONS: This is a 46-year-old gentleman who presents to the hospital with abdominal pain, righ t upper quadrant pain, pancreatitis was noted, thought to be gallstone related. He is here for elec tive cholecystectomy. DESCRIPTION OF PROCEDURE: The patient was brought into the operating room. After induction of endo tracheal anesthesia in a supine position, his abdomen was prepped with chlorhexidine and draped ster ilely. Time-out procedure was then performed according to institutional standards. Local anestheti c was infused in skin and subcu tissues of the trocar sites and open supraumbilical trocar placement was performed. The abdomen was then insufflated to 15 TOR with carbon dioxide. Working trocars we re placed in the subxiphoid and right subcostal areas under direct visualization. The gallbladder w as brought in the field of dissection and the cystic duct and cystic artery were dissected out the t riangle of [place]. Gallbladder was in somewhat of an intrahepatic position and it was dissected off the cystic plate using electrocautery. Hemostasis was assured. The cystic duct and cystic artery w ere triply clipped and ligated, and the gallbladder was placed into an Endopouch before taking out o f the abdomen. Irrigation and aspiration of the abdomen was done until clear. The working trocars were removed. The [place] port was closed with 0 Vicryl and all 4 ports were reapproximated at skin level using 4-0 Monocryl. Dermabond was applied. The patient awakened and extubated, taken to the recovery room in stable condition with no immediate complications. COMPLICATIONS: There were no complications. /[id number]/MODL
[2017-04-16] MEDS: SENNOSIDES/DOCUSATE SODIUM TAB PO SCH (21:02)
[2017-04-17] MEDS: oxyCODONE IR 5 MG TAB PO PRN ×3 (03:02→18:07)
[2017-04-17] MEDS: ACETAMINOPHEN 325 MG TAB PO PRN ×2 (03:57→10:44)
[2017-04-17] MEDS: ONDANSETRON DISINTEGRATING 4 MG TAB PO PRN ×2 (09:11→13:22)
[2017-04-17] MEDS: FAMOTIDINE 20 MG/NACL 50 ML IV SCH ×2 (09:12→21:36)
--- NOTE | 2017-04-17 10:11 | HOSPPROG ---
Hospitalist Progress Note Assessment/Plan: # abd pain: +pancreatitis, mild indirect bili; EGD neg for PUD d/t biliary pancreatitis? - s/p lap raúl without change in his pain - will check labs (CMP, lipase), make NPO and empirically treat for pancreatitis # obesity - BMI 36 Subjective: s/p lap raúl; still complains of abd pain (not significantly changed from admit) and ongoing AMAYA Objective: Vital Signs Temp Pulse Resp BP Pulse Ox 36.9 C 67 20 92/58 L 88 L 04/17/17 08:00 04/17/17 08:00 04/17/17 08:00 04/17/17 08:00 04/17/17 08:00 Laboratory Results 04/15/17 04:55 04/15/17 04:55 04/16/17 04/17/17 04/18/17 05:59 05:59 05:59 Intake Total 2461 900 Output Total 620 Balance 2461 280 operative note reviewed - Physical Exam Constitutional: no apparent distress, appears nourished Cardiovascular: regular rate and rhythym, no murmur, rub, or gallop Respiratory: no respiratory distress, no rales or rhonchi, clear to auscultation Gastrointestinal: other (incisions clean; soft, diffuse abd pain), No guarding, No rebound, No distension ICD10 Worksheet Patient Problems: Problems Problem Status Onset Abdominal pain Acute Gastritis Acute
--- NOTE | 2017-04-17 10:24 | SOAPPROG ---
SOAP Progress Note Assessment/Plan: Assessment:no overnight issues. mild nausea last mellissa. desiring to try eating. avss. comfortable. mild RUQ incisional tenderness. abd dist, soft. s/p lap choly pod#1 - hospitalist note reviewed - ok to adv diet from surgical standpoint. cont supportive care. no new reccs. Plan: 04/17/17 10:23 Objective: Vital Signs Temp Pulse Resp BP Pulse Ox 36.9 C 67 20 92/58 L 88 L 04/17/17 08:00 04/17/17 08:00 04/17/17 08:00 04/17/17 08:00 04/17/17 08:00 Laboratory Results 04/15/17 04:55 04/15/17 04:55 04/16/17 04/17/17 04/18/17 05:59 05:59 05:59 Intake Total 2461 900 Output Total 620 Balance 2461 280 ICD10 Worksheet Patient Problems: Problems Problem Status Onset Abdominal pain Acute Gastritis Acute
[2017-04-17] MEDS: SENNOSIDES/DOCUSATE SODIUM TAB PO SCH ×2 (10:44→21:36)
[2017-04-17 11:00] LABS: ALANINE AMINOTRANSFERASE 95 IU/L (21-72); ALKALINE PHOSPHATASE 54 IU/L (38-126); ANION GAP 11 mEq/L (8-16); ASPARTATE AMINOTRANSFERASE 64 IU/L (17-59); BILIRUBIN,TOTAL 1.6 mg/dL (0.1-1.4); CALCIUM 8.9 mg/dL (8.5-10.4); CARBON DIOXIDE 26 mEq/l (22-31); CHLORIDE 105 mEq/L (97-110); GLOMERULAR FILTRATION RATE > 60; GLUCOSE 117 mg/dL (70-100); POTASSIUM 3.8 mEq/L (3.5-5.2); SODIUM 142 mEq/L (134-144); TOTAL PROTEIN 5.7 g/dL (6.3-8.2)
[2017-04-17 19:29] VITALS: RESP 16
[2017-04-17] MEDS: D5W 1/2 NS 1,000 ML IV SCH (21:36)
[2017-04-18 05:38] LABS: % IMMATURE GRANULYOCYTES 0.5 % (0.0-1.1); ABSOLUTE IMMATURE GRANULOCYTES 0.03 10^3/uL (0.00-0.10); ADD DIFF? NO; ADD MORPH? NO; ADD SCAN? NO; ATYPICAL LYMPHOCYTE FLAG 20 (0-99); FRAGMENT RBC FLAG 0 (0-99); HEMATOCRIT 40.8 % (40.0-51.0); LEFT SHIFT FLG 10 (0-99); LIPEMIA HEMOLYSIS FLAG 90 (0-99); MEAN CELL HEMOGLOBIN 30.3 pg (27.9-34.1); MEAN CELL HEMOGLOBIN CONCENTR. 34.3 g/dL (32.4-36.7); MEAN CELL VOLUME 88.3 fL (81.5-99.8); MEAN PLATELET VOLUME 9.5 fL (8.7-11.7); PLATELET CLUMPS FLAG 10 (0-99); PLATELET COUNT 230 10^3/uL (150-400); RED BLOOD CELL COUNT 4.62 10^6/uL (4.40-6.38); RED CELL DISTRIBUTION WIDTH 12.2 % (11.5-15.2)
[2017-04-18 05:56] LABS: ALANINE AMINOTRANSFERASE 86 IU/L (21-72); ALBUMIN 2.9 g/dL (3.5-5.0); ALKALINE PHOSPHATASE 55 IU/L (38-126); ANION GAP 11 mEq/L (8-16); ASPARTATE AMINOTRANSFERASE 41 IU/L (17-59); BILIRUBIN,TOTAL 1.2 mg/dL (0.1-1.4); CALCIUM 8.7 mg/dL (8.5-10.4); CARBON DIOXIDE 24 mEq/l (22-31); CHLORIDE 107 mEq/L (97-110); CREATININE 0.9 mg/dL (0.7-1.3); GLOMERULAR FILTRATION RATE > 60; GLUCOSE 108 mg/dL (70-100); POTASSIUM 3.4 mEq/L (3.5-5.2); SODIUM 142 mEq/L (134-144); TOTAL PROTEIN 5.5 g/dL (6.3-8.2)
[2017-04-18] MEDS: D5W 1/2 NS 1,000 ML IV SCH (07:56)
[2017-04-18] MEDS: FAMOTIDINE 20 MG/NACL 50 ML IV SCH (09:04)
[2017-04-18] MEDS: SENNOSIDES/DOCUSATE SODIUM TAB PO SCH (09:05)
--- NOTE | 2017-04-18 10:21 | SOAPPROG ---
SOAP Progress Note Assessment/Plan: Assessment: feeling much better. hungry. avss. comfortable. ambulating in halls. doing well. home today. ofc f/u [address] sethi no overnight issues. mild nausea last mellissa. desiring to try eating. avss. comfortable. mild RUQ incisional tenderness. abd dist, soft. s/p lap choly pod#1 - hospitalist note reviewed - ok to adv diet from surgical standpoint. cont supportive care. no new reccs. Plan: 04/17/17 10:23 04/18/17 10:20 Objective: Vital Signs Temp Pulse Resp BP Pulse Ox 37.2 C 52 L 16 130/81 H 92 04/18/17 07:42 04/18/17 07:42 04/18/17 07:42 04/18/17 07:42 04/18/17 07:42 Laboratory Results 04/18/17 05:02 04/18/17 05:02 04/17/17 04/18/17 04/19/17 05:59 05:59 05:59 Intake Total 900 770 Output Total 620 950 Balance 280 -180 ICD10 Worksheet Patient Problems: Problems Problem Status Onset Abdominal pain Acute Gastritis Acute
[2017-04-18 11:55] VITALS: BP 126/89; PULSE 58; TEMP 99; O2SAT 95
--- NOTE | 2017-04-18 14:26 | GDS ---
[f rep st] DISCHARGE SUMMARY FINAL DIAGNOSES: 1. Abdominal pain. 2. Biliary pancreatitis. 3. Mild cholecystitis. 4. Obesity. HOSPITAL COURSE: A 46-year-old man admitted with abdominal pain. He underwent a thorough workup, i ncluding abdominal CT scan which showed some pancreatic inflammation, abdominal ultrasound which simone wed gallbladder sludge, abdominal MRI which showed normal caliber bile ducts, some peripancreatic an d perinephric stranding, upper endoscopy which showed minimal gastritis. He had mild elevation of h is lipase peaking at 577 with mild intermittent ALT elevations. The most likely explanation was robbie iary pancreatitis. He underwent a cholecystectomy on 04/16/[address] Barney. Two days postopera tively, he was eating with significantly increased pain and no worsening pain with eating. He was a ble to tolerate a full meal prior to discharge. He was discharged in stable condition with short-te prescriptions for oxycodone as well as Zofran. He has been somewhat constipated. I recommended that he use MiraLAX twice a day until this resolved. He will follow up with Dr. Barney next week f or a postoperative visit. He and his have been made aware of all this through the use of an in terpreter. BILLING: I spent more than 30 minutes on the day of discharge coordinating care. /[id number]/MODL
== END 2017-04-18 12:34 | disposition home or self-care (01) | DRG 419 ==
LOC: F3E 20:20 → OBSVTOIN 04-14 12:57
PROVIDERS: ADMIT Student in an Organized Health Care Education/Training Program; ATTEND Student in an Organized Health Care Education/Training Program
DX: K85.10 Biliary acute pancreatitis without necrosis or infection (principal); K81.1 Chronic cholecystitis; E66.09 Other obesity due to excess calories; Z68.36 Body mass index [BMI] 36.0-36.9, adult
CPT/HCPCS: 96374; G0378; J1170; J1885; J2250; J2405; J2704; J2765; J2780; J3010; Q9967

== ENCOUNTER 2018-03-27 23:19 | Emergency (ER) | payer MEDICAID, OTHER ==
--- NOTE | 2018-03-28 00:06 | EDPHY ---
H & P Stated Complaint: something in left eye Time Seen by Provider: 03/27/18 23:30 HPI/ROS: Chief complaint: Left eye discomfort History of present illness: 47-year-old male presents to the emergency department for left eye discomfort. He states he has been suffering from severe allergies. His eyes have become very itchy. He has been rubbing them excessively. He tried using an [id number] allergy eye drop today which only made the symptoms worsen. Since the afternoon he feels like something has gotten into his eye. His vision is blurry. No report of trauma. No headache. He does not wear contacts. He has never had eye surgery. - Personal History Current Tetanus/Diphtheria Vaccine: No Current Tetanus Diphtheria and Acellular Pertussis (TDAP): No - Medical/Surgical History Hx Asthma: No Hx Chronic Respiratory Disease: No Hx Diabetes: No Hx Cardiac Disease: No Hx Renal Disease: No Hx Cirrhosis: No Hx Alcoholism: No Hx HIV/AIDS: No Hx Splenectomy or Spleen Trauma: No Other PMH: cholecystectomy - Social History Smoking Status: Never smoked - Physical Exam Exam: General: Alert, nontoxic Skin: Periorbital tissue unremarkable. Eyes: No discharge. Diffuse injection bilaterally. No subconjunctival hemorrhage. No hyphema. No hypopyon. PERRLA. Red reflex present bilaterally. Constitutional: Initial Vital Signs Temperature (C) 36.8 C 03/27/18 23:20 Heart Rate 72 03/27/18 23:20 Respiratory Rate 16 03/27/18 23:20 Blood Pressure 131/80 H 03/27/18 23:20 O2 Sat (%) 96 03/27/18 23:20 O2 Delivery Mode Room Air Allergies/Adverse Reactions: No Known Allergies Allergy (Verified 03/27/18 23:26) Home Medications: Medication Instructions Recorded Olopatadine 0.1% 03/27/18 Medical Decision Making Procedures: Patient's eye was stained with flouriscine and examined with slit lamp using cobalt blue and white light. Corneal abrasion noted at the 2 to 3:00 position not overlying the pupil. No foreign bodies. The eyelids were everted. No foreign bodies noted. ED Course/Re-evaluation: Patient seen in conjunction with my secondary supervising physician Dr. Kiel Sandoval. Patient presents for left eye discomfort. He appears to have a corneal abrasion. He is discharged home on Polytrim eyedrops. Home care including not rubbing the eyes and oral allergy medications were discussed. He is referred to ophthalmology for recheck. Return precautions were given. Differential Diagnosis: Included but not limited to corneal abrasion, corneal ulceration, foreign body Departure - Departure Disposition: Home, Routine, Self-Care Clinical Impression: Corneal abrasion Qualifiers: Encounter type: initial encounter Laterality: left Qualified Code(s): S05.02XA - Injury of conjunctiva and corneal abrasion without foreign body, left eye, initial encounter Condition: Good Instructions: Corneal Abrasion (ED) Additional Instructions: Follow-up with Ophthalmology in 1-2 days for continued evaluation and care Place 1 drop in the affected eye every 4 hours while awake, no more than 6 drops in 24 hr, use for 7 days only Use an oral antihistamine such as Claritin or Zyrtec as directed as needed for allergies Do not rub your eyes If symptoms worsen or new symptoms develop return to the emergency room for recheck Referrals: Patient,NotPresent [Unknown] - As per Instructions Gabby Bojorquez MD [Non Staff Provider (MD)] - As per Instructions
[2018-03-28] MEDS ORDERED: POLYMYXIN B SULFATE/TMP 10 ML OPHT.BTL EACHEYE SCH (06:00)
[2018-03-28 06:11] VITALS: BP 132/76
== END 2018-03-28 00:44 | disposition home or self-care (01) ==
DX: S05.02XA Injury of conjunctiva and corneal abrasion without foreign body, left eye, initial encounter (principal); X58.XXXA Exposure to other specified factors, initial encounter